=== PATIENT | male | born 1975 | race Asian ===

== ENCOUNTER 2017-04-23 16:58 | Emergency (ER) | payer OTHER ==
[~2017-04-23] VITALS: Ht 180.3 cm; Wt 92.7 kg
[2017-04-23 17:09] VITALS: BP 166/96
[2017-04-23] MEDS ORDERED: KETOROLAC 30 MG/1 ML ONE (17:57)
[2017-04-23] MEDS ORDERED: KETOROLAC 60 MG/2 ML IM ONE (18:00)
== END 2017-04-23 18:32 | disposition home or self-care (01) ==
LOC: ED 18:05
DX: M76.62 Achilles tendinitis, left leg (principal)
CPT/HCPCS: 29515; 96372; 99283; J1885